=== PATIENT | female | born 1950 | race Caucasian/White ===

== ENCOUNTER → 2019-06-14 | Outpatient (CLI) | payer MEDICARE, BC, OTHER ==
[2019-06-14 14:22] LABS: INR 1.08; PROTHROMBIN TIME 13.7 SECONDS (11.8-14.0)
[2019-06-14 14:23] LABS: PARTIAL THROMBOPLASTIN TIME 35.6 SECONDS (25.0-38.4)
== END ==
LOC: M SMT 10:30
PROVIDERS: ATTEND Internal Medicine Pulmonary Disease
DX: R91.1 Solitary pulmonary nodule (principal)

== ENCOUNTER → 2019-09-05 | Outpatient (CLI) | payer MEDICARE, BC, OTHER ==
[~2019-09-05] MED LIST: ISOVUE-370 76% 100ML VIAL (Q9967) As Ordered ONE
--- NOTE | 2019-09-05 11:57 | REP ---
CT of the chest with IV contrast: Clinical history states solitary pulmonary nodule. There are no comparison studies available. Note the patient has additional history of lymphoma and emphysema. There is focal increased density in the extreme apex of the right lung measuring up to 3.3 cm in diameter. This is nonspecific in the absence of comparison studies and could represent chronic pleural parenchymal scarring or could represent neoplasm. There is a 2.5 cm nodule with poorly defined margins in the superior segment of the right lower lobe on image 45. There is a faintly visible ground-glass density anterolaterally in the right lung on image 46, nonspecific. There is atelectasis inferiorly in the right middle lobe. There is an 8 mm nodule like density at the inferior tip of the lingula on image 81. There are no pleural effusions. There is bilateral hilar adenopathy. There is mediastinal subcarinal adenopathy measuring up to 15 mm short axis. There is mediastinal paratracheal borderline adenopathy measuring up to 8 mm short axis. There are normal size anterior mediastinal nodes measuring up to 5 mm short axis. There is no axillary adenopathy. The thoracic aorta is unremarkable. The cardiac size is normal. There is no pericardial effusion. Upper abdomen: There are several hypodense lesions in the liver: in the dome measuring 11 mm, in the left hepatic lobe medial segment measuring 24 mm, anteriorly in the hepatic left lobe lateral segment measuring 9 mm and at the inferior tip of right lobe measuring 15 mm. Additionally, there are two enhancing lesions: one anteriorly in the right lobe measuring 17 mm and the other at the inferior tip of the right lobe posteriorly measuring 7 mm. There are surgical clips in the gallbladder fossa. The pancreas and spleen are unremarkable. The adrenals are unremarkable. The renal upper poles are unremarkable. The superior most portion of the abdominal aortic aneurysm minutes is visualized. Aneurysm is not completely included in the scan. Impression: Lung nodules as described. Atelectasis and ground-glass densities as described. Hilar and mediastinal adenopathy. Multiple hepatic hypodense and hepatic enhancing nodules as described. Abdominal aortic aneurysm incompletely occluded in the scan. Consider hepatic MRI for follow up evaluation of the hepatic nodules. Electronically Signed by Ajith Martinez MD 09/05/2019 11:49 A
== END ==
LOC: M RAD 10:34
PROVIDERS: ATTEND Internal Medicine Pulmonary Disease
DX: R91.1 Solitary pulmonary nodule (principal)
CPT/HCPCS: 71260; Q9967

== ENCOUNTER → 2019-10-12 | Outpatient (CLI) | payer MEDICARE, BC, OTHER ==
[~2019-10-12] MED LIST changes: +ATOR1TAB19 PO; +AZIT500T5 PO; +IBUP-1022 PO; -ISOVUE-370 76% 100ML VIAL (Q9967) As Ordered ONE; +LATA0.0015 OU; +OMEP-218 PO; +ONDA-83 PO; +PRED10TA2 PO; +PROAAER10 INH; +REST0.05 OU; +TREL1AER INH
--- NOTE | 2019-10-12 14:35 | REPPI ---
PA and lateral chest: Comparison is the chest CT dated 09/05/2019. The right costophrenic angle is effaced as an interval change suggestive of a new right pleural effusion. The patients known right lower lobe 2.5 cm lung nodule is faintly visible in the mid right lung. The left lung is clear. The cardiac size is normal. The deepak, mediastinum, skeletal structures are. Impression: New right pleural effusion. The known right lung nodule is faintly visible. Electronically Signed by Ajith Martinez MD 10/12/2019 02:26 P
== END ==
LOC: M PLAIMG 12:16
PROVIDERS: ATTEND Internal Medicine Pulmonary Disease
DX: J44.1 Chronic obstructive pulmonary disease with (acute) exacerbation (principal)

== ENCOUNTER 2019-10-13 17:21 | Inpatient (IN) | payer MEDICARE, BC, OTHER ==
[~2019-10-13] VITALS: Ht 154.9 cm; Wt 63.3 kg
[2019-10-13] MEDS ORDERED: ONDA-83 PO (19:02)
[2019-10-13] MEDS ORDERED: REST0.05 OU (19:02)
[2019-10-13] MEDS ORDERED: OMEP-218 PO (19:02)
[2019-10-13] MEDS ORDERED: LATA0.0015 OU (19:02)
[2019-10-13] MEDS ORDERED: IBUP-1022 PO (19:02)
[2019-10-13] MEDS ORDERED: ATOR1TAB19 PO (19:02)
[2019-10-13] MEDS ORDERED: ALBUTEROL SULFATE 2.5 MG/0.5 ML INH NEB SOLN NEB ONE (20:30)
[2019-10-13 20:49] LABS: BASO % 0.1 % (0.0-1.0); EOS % 0.1 % (0.0-3.0); HEMOGLOBIN 11.9 g/dl (12.0-15.5); LYMPH # 1.1 10^3/uL (1.5-5.0); LYMPH % 7.5 % (24.0-44.0); MEAN CORPUSCULAR HEMOGLOBIN 28.9 pg (27.0-33.0); MEAN CORPUSCULAR HGB CONC 32.2 g/dl (32.0-36.5); MEAN CORPUSCULAR VOLUME 89.8 fl (80.0-96.0); MONO # 0.8 10^3/uL (0.0-0.8); MONO % 5.8 % (0.0-5.0); NEUTROPHILS # 12.3 10^3/uL (1.5-8.5); NEUTROPHILS % 86.1 % (36.0-66.0); PLATELET COUNT, AUTOMATED 414 10^3/uL (150-450); RED BLOOD COUNT 4.12 10^6/uL (4.00-5.40); WHITE BLOOD COUNT 14.3 10^3/uL (4.0-10.0)
--- NOTE | 2019-10-13 20:55 | REPVR ---
PROCEDURE INFORMATION: Exam: CT Chest Without Contrast Exam date and time: 10/13/2019 8:07 PM Age: 69 years old Clinical indication: Abnormal findings; Abnormal radiologic exam of lung or chest; Additional info: Right sided pleaural effusion on xray TECHNIQUE: Imaging protocol: Computed tomography of the chest without contrast. 3D rendering: MIP and/or 3D reconstructed images were created by the technologist. Radiation optimization: All CT scans at this facility use at least one of these dose optimization techniques: automated exposure control; mA and/or kV adjustment per patient size (includes targeted exams where dose is matched to clinical indication); or iterative reconstruction. COMPARISON: CT Chest with contrast 09/05/2019 11:08 AM FINDINGS: Lungs: Spiculated 3.2 cm mass in the right lower lobe has increased in size. Worsening interstitial changes with peribronchial thickening and fibrosis in the left upper lobe. New small areas of airspace consolidation in the right middle and lower lobes. Worsening interstitial thickening in the right lower lobe. No new masses are seen. Right lung is clear. Mild emphysematous changes. Pleural space: Small right pleural effusion. No pneumothorax. Heart: Coronary artery disease is noted. Normal heart size. Mediastinum: New soft tissue thickening in the right hilum around the hilar bronchi. Aorta: Unremarkable. No aortic aneurysm. Lymph nodes: Scattered mediastinal and hilar lymph nodes are not significantly changed. Liver: Low-density masses in the liver are unchanged. Bones/joints: Unremarkable. No acute fracture. Soft tissues: Unremarkable. IMPRESSION: 1. Interval increase in size of right lower lobe mass. 2. New area of airspace consolidation in the right lower lobe suggesting developing pneumonia. 3. Interstitial thickening and peribronchial soft tissue thickening in the right lung may be due to interstitial edema or lymphangitic tumor spread. 4. Small right pleural effusion. Electronically signed by: Juanjo Perez On 10/13/2019 20:54:33 PM
[2019-10-13 21:21] LABS: ALBUMIN 3.1 GM/DL (3.2-5.2); ALT/SGPT 25 U/L (12-78); BILIRUBIN,DIRECT < 0.1 MG/DL (0.0-0.2); BILIRUBIN,TOTAL 0.5 MG/DL (0.2-1.0); BLOOD UREA NITROGEN 17 MG/DL (7-18); CALCIUM LEVEL 9.2 MG/DL (8.8-10.2); CARBON DIOXIDE LEVEL 30 MEQ/L (21-32); CHLORIDE LEVEL 105 MEQ/L (98-107); CREATININE FOR GFR 0.57 MG/DL (0.55-1.30); GLOMERULAR FILTRATION RATE > 60.0 (>45); GLUCOSE, FASTING 100 MG/DL (70-100); NT-PRO BNP 1547 PG/ML (<125); POTASSIUM SERUM 3.6 MEQ/L (3.5-5.1); SODIUM LEVEL 143 MEQ/L (136-145); THYROXINE (T4) 11.1 UG/DL (4.5-12.0); TOTAL PROTEIN 6.8 GM/DL (6.4-8.2)
[2019-10-13] MEDS ORDERED: cefTRIAXone SOD 1 GM in D5W MINI-BAG PLUS 50 ML IV ONE (21:30)
[2019-10-13] MEDS ORDERED: AZIT500T5 PO (21:55)
[2019-10-13] MEDS ORDERED: PROAAER10 INH (21:55)
[2019-10-13] MEDS ORDERED: PRED10TA2 PO (21:55)
[2019-10-13] MEDS ORDERED: TREL1AER INH (21:56)
[2019-10-13] MEDS ORDERED: methylPREDNISolone INJ 125 MG/2 ML VIAL (J2930) IV STA (22:43)
[2019-10-13] MEDS ORDERED: ALBUTEROL SULFATE 2.5 MG/0.5 ML INH NEB SOLN NEB PRN (22:45)
--- NOTE | 2019-10-13 22:50 | HPEPDOC ---
[facility] Medical History & Physical Date of Admission Oct 13, 2019 Date of Service: Oct 13, 2019 Primary Care Physician: Carlin Hager Attending Physician: JUANI GONSALVES MD History and Physical TIME OF SERVICE: 9:50 PM CHIEF COMPLAINT: Sent by Dr. Mejia's office HISTORY OF PRESENT ILLNESS: This is a 64-year-old female who was sent from Dr. Mejia's office for evaluation of dyspnea and to rule out cardiac causes. The patient reports feeling short of breath since September; the rest of breath is worse when she walks. She also has a cough that is usually productive of clear sputum in the morning and becomes dry later on in the day. She denies having lower extremity edema or chest pain and feels like she has gained weight. Yesterday she saw Dr. Mejia was started on supplemental O2, prednisone, Trilogy, and a Z-Ashutosh. She had chest x-ray which showed a right pleural effusion, therefore, Dr. Mejia's office called her and her to come in for evaluation. She has a history of lymphoma affecting the neck; according her , the most recent PET scan done at [facility] "did not light up." REVIEW OF SYSTEMS: 12 point review of systems negative except as listed in HPI PAST MEDICAL/ SURGICAL HISTORY: Lymphoma of the neck Right lung nodule cause to be determined COPD Chronic oxygen-dependent respiratory failure ( 2 L) AAA Dyslipidemia. Hysterectomy Tubal ligation SOCIAL HISTORY: She is a former smoker with a 50 pack years history. She quit in April ALLERGIES: Please see below. HOME MEDICATIONS: Please see below. Vital Signs Date Time Temp Pulse Resp B/P (MAP) Pulse Ox O2 Delivery O2 Flow Rate FiO2 10/13/19 17:22 98.6 98 18 145/95 (112) 96 Room Air PHYSICAL EXAMINATION: GEN: well nourished / well developed/ NAD INTEGUMENT: She doesn't have facial plethora HEENT:NCAT / lips are not cyanotic / he doesn't have pursed lip breathing / NC in place / mucus membranes moist and pink CVS: RRR/ radial pulses intact LUNGS: She is using accessory muscles and is having difficulties speaking a full sentence without stopping to take a breath / coughing /breath sounds are diminished bilaterally ABDOMEN: soft & not tender with palpation NEURO: CN 2-12 are grossly intact / speech is not dysarthric PSYCH: alert and oriented to person place and time/ able to understand and follow all commands LABORATORY DATA: Immature Granulocyte % (Auto) 0.4, Neutrophils (%) (Auto) 86.1H, Lymphocytes (%) (Auto) 7.5L, Monocytes (%) (Auto) 5.8H, Eosinophils (%) (Auto) 0.1, Basophils (%) (Auto) 0.1, Neutrophils # (Auto) 12.3H, Lymphocytes # (Auto) 1.1L, Monocytes # (Auto) 0.8, Eosinophils # (Auto) 0.0, Basophils # (Auto) 0.0, Nucleated Red Blood Cells % (auto) 0.0, Anion Gap 8, Glomerular Filtration Rate > 60.0, Calcium Level 9.2, Total Bilirubin 0.5, Direct Bilirubin < 0.1, Aspartate Amino Transf (AST/SGOT) 24, Alanine Aminotransferase (ALT/SGPT) 25, Alkaline Phosphatase 82, YO-Ssq-D-Type Natriuretic Peptide 1547H, Total Protein 6.8, Albumin 3.1L, Albumin/Globulin Ratio 0.84L, Thyroid Stimulating Hormone (TSH) 1.370, Thyroxine (T4) 11.1 IMAGING: CT chest " IMPRESSION: 1. Interval increase in size of right lower lobe mass. 2. New area of airspace consolidation in the right lower lobe suggesting developing pneumonia. 3. Interstitial thickening and peribronchial soft tissue thickening in the right lung may be due to interstitial edema or lymphangitic tumor spread. 4. Small right pleural effusion" MICROBIOLOGY: 10/13/19 Blood Culture, Received Pending 10/13/19 Blood Culture, Received Pending ASSESSMENT: Ms. Mari is a 69-year-old with a past medical history of lymphoma affecting the neck, new right lung nodule of unclear cause, COPD, oxygen-dependent respiratory failure, AAA, and dyslipidemia who is admitted for evaluation of dyspnea. PLAN: 1. Multifactorial Dyspnea Possibly due to postobstructive pneumonia and/or progression of possible lung cancer. She also appears to be having a COPD exacerbation. EKG shows sinus rhythm with a heart rate of 85, & no acute ST elevation. Plan: admit to PCU / supplemental O2 / continuous pulse oximetry / aspiration precautions / COPD diet / since her BNP is elevated we will follow up in Echo to assess for pulmonary hypertension, and trend troponins / f/u VBG / Solu-Medrol now / Dunebs Q6H, Albuterol Q1HP, Prednisone + PPI / ceftriaxone, doxycycline pending sputum culture, strep pneumo, MRSA, and legionella/ Tessalon Pearls / Acetaminophen PRN for fever / refer to [facility] for repeat PFTs and Pulmonary Rehab when ready for d/c 2. Right lung nodule with pleural effusion. The patient reports that she doesn't want IR guided biopsy. - will ask the daytime team to make a call to Dr. Mejia to determine if the plan is for pleural effusion or bronchoscopy and if the procedure should be done this admission / will request PET report from [facility] 3. Dyslipidemia - atorvastatin DVT PROPHYLAXIS: Lovenox DISPOSITION: Home. after more than 2 midnight's stay Home Medications Scheduled Atorvastatin Calcium (Atorvastatin Calcium) 10 Mg Tablet, 10 MG PO QHS Azithromycin (Azithromycin) 500 Mg Tablet, 500 MG PO DAILY Cyclosporine (Restasis) 0.05% Droperette, 1 DROP OU BID Fluticasone/Umeclidin/Vilanter (Trelegy Ellipta 100-62.5-25) 1 Each Blst.w.dev, 1 PUFF INH DAILY Latanoprost/Pf (Latanoprost 0.005% Eye Drop) 7.5 Ml Drops, 1 DROP OU QHS Omeprazole (Omeprazole) 20 Mg Capsule.dr, 20 MG PO DAILY Prednisone (Prednisone) 10 Mg Tablet, 40 MG PO DAILY 40MG x 3 DAYS, 30MG x 3 DAYS, 20MG x 3DAYS, 10MG x 3 DAYS. Scheduled PRN Albuterol Sulfate (Proair Hfa) 8.5 Gm Hfa.aer.ad, 2 PUFF INH Q4H PRN for SOB/WHEEZING Ibuprofen (Ibuprofen) 600 Mg Tablet, 600 MG PO TID PRN for PAIN with food Ondansetron HCl (Ondansetron HCl) 4 Mg Tablet, 4 MG PO Q8H PRN for NAUSEA OR VOMITING Allergies Coded Allergies: No Known Allergies (Unverified , 10/13/19) A-FIB/CHADSVASC A-FIB History Current/History of A-Fib/PAF?: No Current PO Anticoag Therapy: No JUANI GONSALVES MD Oct 13, 2019 22:50
[2019-10-13 23:21] LABS: CK-MB VALUE MASS 6.8 NG/ML (<3.6); CPK CREATINE PHOSPHOKINASE 280 U/L (26-192); MAGNESIUM LEVEL 1.9 MG/DL (1.8-2.4); MB/CK RELATIVE INDEX 2.43 (< OR =4); TROPONIN I < 0.02 NG/ML (< 0.10)
[2019-10-14] VITALS (8 sets, daily range): BP systolic 142–150; BP diastolic 89–99; O2SAT 97–99
[2019-10-14] MEDS ORDERED: LevoFLOXacin IV 750 MG in IV 1 EA IV SCH ×2
--- NOTE | 2019-10-14 00:21 | ECGEPIP ---
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
[2019-10-14] MEDS ORDERED: BENZONATATE 100 MG CAP PO PRN (00:45)
[2019-10-14 00:49] LABS: VENOUS BASE EXCESS -1.2 (-2.0-2.0); VENOUS HCO3 23.4 MEQ/L (23.0-27.0); VENOUS O2 SATURATION 96.4 % (60.0-80.0); VENOUS PARTIAL PRESSURE CO2 38.6 mmHg (38.0-50.0); VENOUS PARTIAL PRESSURE O2 86.2 mmHg (30.0-50.0); VENOUS STANDARD HCO3 23.5 MEQ/L; VENOUS TOTAL CO2 24.6 MEQ/L (24.0-28.0)
[2019-10-14] MEDS: IPRATROPIUM 0.5MG/ALBUTEROL 2.5MG INH SOL UD 3ML (DUONEB)(J7620) NEB SCH ×6 (02:00→23:51)
[2019-10-14] MEDS: LATANOPROST 0.005% OPHTH SOLN 2.5 ML OU SCH ×2 (02:32→20:33)
[2019-10-14] MEDS: DOXYCYCLINE HYCLATE 100 MG in D5W MINI-BAG PLUS 100 ML IV SCH ×3 (02:32→23:34)
[2019-10-14] MEDS: ATORVASTATIN 10 MG TAB PO SCH ×2 (02:32→20:33)
[2019-10-14 05:38] LABS: HEMATOCRIT 37.9 % (36.0-47.0); HEMOGLOBIN 12.2 g/dl (12.0-15.5); MEAN CORPUSCULAR HEMOGLOBIN 29.1 pg (27.0-33.0); MEAN CORPUSCULAR HGB CONC 32.2 g/dl (32.0-36.5); MEAN CORPUSCULAR VOLUME 90.5 fl (80.0-96.0); PLATELET COUNT, AUTOMATED 404 10^3/uL (150-450); RED BLOOD COUNT 4.19 10^6/uL (4.00-5.40); WHITE BLOOD COUNT 11.5 10^3/uL (4.0-10.0)
[2019-10-14 05:56] LABS: BLOOD UREA NITROGEN 16 MG/DL (7-18); CALCIUM LEVEL 8.5 MG/DL (8.8-10.2); CARBON DIOXIDE LEVEL 30 MEQ/L (21-32); CHLORIDE LEVEL 108 MEQ/L (98-107); CREATININE FOR GFR 0.59 MG/DL (0.55-1.30); GLOMERULAR FILTRATION RATE > 60.0 (>45); GLUCOSE, FASTING 139 MG/DL (70-100); MAGNESIUM LEVEL 2.1 MG/DL (1.8-2.4); SODIUM LEVEL 142 MEQ/L (136-145)
[2019-10-14 06:00] LABS: CK-MB VALUE MASS 6.7 NG/ML (<3.6); MB/CK RELATIVE INDEX 2.61 (< OR =4); TROPONIN I 0.02 NG/ML (< 0.10)
[2019-10-14] MEDS: cefTRIAXone SOD 2 GM in D5W MINI-BAG PLUS 50 ML IV SCH (08:59)
[2019-10-14] MEDS ORDERED: cefTRIAXone SOD 1 GM in D5W MINI-BAG PLUS 50 ML IV SCH (09:00)
[2019-10-14] MEDS ORDERED: ENOXAPARIN 40 MG/0.4 ML SYRINGE (J1650) SC SCH (09:00)
[2019-10-14] MEDS: PANTOPRAZOLE 40MG TAB (PROTONIX) PO SCH (09:00)
[2019-10-14] MEDS ORDERED: cefTRIAXone SOD 2 GM VIAL (J0696 PER 250MG) IM SCH (09:00)
[2019-10-14] MEDS ORDERED: cefTRIAXone SOD 1 GM in D5W MINI-BAG PLUS 50 ML IV ONE (09:00)
[2019-10-14] MEDS: predniSONE 20 MG TAB PO SCH (09:00)
[2019-10-14 11:21] LABS: CK-MB VALUE MASS 6.3 NG/ML (<3.6); CPK CREATINE PHOSPHOKINASE 246 U/L (26-192); MB/CK RELATIVE INDEX 2.56 (< OR =4); TROPONIN I < 0.02 NG/ML (< 0.10)
--- NOTE | 2019-10-14 12:16 | IPNPDOC ---
Subjective Date Seen The patient was seen on 10/14/19. Subjective Chief Complaint/HPI Kelsey is feeling better with therapy. She's not wheezing this morning, and has been up to the bathroom with oxygen. Objective Physical Examination General Exam: Positive: Alert Eye Exam: Negative: PERRLA, Sclera icteric ENT Exam: Positive: Mucous membr. moist/pink Neck Exam: Positive: Supple Chest Exam: Positive: Diminished (on RLL) Abdomen Exam: Positive: Normal bowel sounds Female Exam: Positive: Nl Ext Genitalia Extremity Exam: Positive: Edema (trace pitting) Skin Exam: Negative: Rash Neuro Exam: Positive: Normal Gait Psych Exam: Positive: Mental status NL Assessment /Plan Assessment # COPD exacerbation # Post-obstructive community acquired pneumonia # Acute hypoxic respiratory failure - continue pred/doxy/ceftriaxone - oxygen at discharge # Right lung nodule with pleural effusion - d/w Dr. Mejia will try for diagnostic tap of right pleural effusion Plan/VTE VTE Prophylaxis Ordered?: No (procedure) VTE Exclusion Mechanical Proph: N/A:VTE Prophy Ordered VTE Exclusion Pharmacological: Other VS, I&O, 24H, Fishbone Vital Signs/I&O Vital Signs Date Time Temp Pulse Resp B/P (MAP) Pulse Ox O2 Delivery O2 Flow Rate FiO2 10/14/19 10:00 98.5 87 16 143/89 (107) 97 Nasal Cannula 2.0 I&O- Last 24 Hours up to 6 AM 10/14/19 06:00 Intake Total 290 ml Output Total 250 ml Balance 40 ml Laboratory Data 24H LABS Laboratory Tests 2 10/13/19 20:29: Immature Granulocyte % (Auto) 0.4, Neutrophils (%) (Auto) 86.1H, Lymphocytes (%) (Auto) 7.5L, Monocytes (%) (Auto) 5.8H, Eosinophils (%) (Auto) 0.1, Basophils (%) (Auto) 0.1, Neutrophils # (Auto) 12.3H, Lymphocytes # (Auto) 1.1L, Monocytes # (Auto) 0.8, Eosinophils # (Auto) 0.0, Basophils # (Auto) 0.0, Nucleated Red Blood Cells % (auto) 0.0, Anion Gap 8, Glomerular Filtration Rate > 60.0, Calcium Level 9.2, Magnesium Level 1.9, Total Bilirubin 0.5, Direct Bilirubin < 0.1, Aspartate Amino Transf (AST/SGOT) 24, Alanine Aminotransferase (ALT/SGPT) 25, Alkaline Phosphatase 82, Total Creatine Kinase 280H, Creatine Kinase MB 6.8H, Creatine Kinase MB Relative Index 2.43, Troponin I < 0.02, RG-Fmu-D-Type Natriuretic Peptide 1547H, Total Protein 6.8, Albumin 3.1L, Albumin/Globulin Ratio 0.84L, Thyroid Stimulating Hormone (TSH) 1.370, Thyroxine (T4) 11.1 10/14/19 00:39: Blood Gas Puncture Site UNKNOWN, Blood Gas Bicarbonate Standard 23.5, Venous Blood pH 7.400, Venous Blood Partial Pressure CO2 38.6, Venous Blood Partial Pressure O2 86.2H, Venous Blood Total Carbon Dioxide 24.6, Venous Blood HCO3 23.4, Venous Blood Oxygen Saturation 96.4H, Venous Blood Base Excess -1.2 10/14/19 03:00: 10/14/19 05:15: Nucleated Red Blood Cells % (auto) 0.0, Anion Gap 4L, Glomerular Filtration Rate > 60.0, Calcium Level 8.5L, Magnesium Level 2.1, Total Creatine Kinase 257H, Creatine Kinase MB 6.7H, Creatine Kinase MB Relative Index 2.61, Troponin I 0.02 10/14/19 10:49: Total Creatine Kinase 246H, Creatine Kinase MB 6.3H, Creatine Kinase MB Relative Index 2.56, Troponin I < 0.02 CBC/BMP Laboratory Tests 10/13/19 20:29 10/14/19 05:15 Microbiology Microbiology 10/13/19 Blood Culture, Received Pending 10/13/19 Blood Culture, Received Pending NAVDEEP RICHEY MD Oct 14, 2019 12:16
--- NOTE | 2019-10-14 20:18 | ECHO ---
DATE OF PROCEDURE: 10/14/2019 AGE: 69 GENDER: Female HEIGHT: 61 inches WEIGHT: 143 pounds BODY SURFACE AREA: 1.64 m2 PATIENT LOCATION: Inpatient, [address] [place] [address], room 4210 REFERRING PHYSICIAN: Dr. Neelam Quiroga INDICATION: Dyspnea. 2-D MEASUREMENTS: RV: 3.8 cm LV: 4.6 cm Septum: 1.0 cm Posterior wall: 1.0 cm Aortic root: 3.0 cm LA: 3.7 cm LVEF: 75% DOPPLER MEASUREMENTS: AV: 1.6 cm LVOT: 1.0 cm LVOT diameter: 1.8 cm MV-E: 65, A: 97, EA ratio: 0.7 Early mitral deceleration time: 239 ms E prime medial: 5.4 A prime medial: 10 E prime lateral: 7.9 Average E/E prime ratio: 9.8 / PCWP: 14 mmHg PV: 0.7 m/s Pulmonary artery acceleration time: 100 ms RVSP: 37 - 42 mmHg IVC: 2.2 cm COMMENTS Normal sinus rhythm without intraventricular conduction disturbance. M-mode and two-dimensional echocardiography was performed with pulsed, continuous wave, color flow and tissue Doppler studies. Normal left ventricular size, wall thickness and hyperkinetic wall motion. Left atrial size upper limits of normal to slightly dilated with grade 1 LV diastolic dysfunction and current estimated mean left atrial pressure upper limits of normal. Right heart chamber sizes were upper limits of normal with normal wall motion and Doppler evidence of mild - moderate pulmonary hypertension. Mildly dilated inferior vena cava with slightly reduced respiratory collapse in keeping with central venous pressure upper limits of normal to slightly increased. Normal appearing and functioning aortic valve. Normal aortic dimensions. Slightly thickened mitral valvular apparatus with normal leaflet excursion and no evidence of prolapse, yet moderate insufficiency. Normal tricuspid valve with very mild tricuspid insufficiency. No apparent intracardiac mass or pericardial effusion.
[2019-10-15] VITALS (7 sets, daily range): BP systolic 134–150; BP diastolic 88–91; O2SAT 92–95
[2019-10-15] MEDS: IPRATROPIUM 0.5MG/ALBUTEROL 2.5MG INH SOL UD 3ML (DUONEB)(J7620) NEB SCH ×3 (07:44→18:46)
[2019-10-15] MEDS: predniSONE 20 MG TAB PO SCH (08:40)
[2019-10-15] MEDS: PANTOPRAZOLE 40MG TAB (PROTONIX) PO SCH (08:40)
[2019-10-15] MEDS: cefTRIAXone SOD 2 GM in D5W MINI-BAG PLUS 50 ML IV SCH (08:40)
[2019-10-15] MEDS ORDERED: FUROSEMIDE 20 MG TAB PO SCH (09:00)
--- NOTE | 2019-10-15 09:58 | IPNPDOC ---
Subjective Date Seen The patient was seen on 10/15/19. Subjective Chief Complaint/HPI Kelsey could not have her thoracentesis done yesterday, her breathing is better but still feels sob Objective Physical Examination General Exam: Positive: Alert, No Acute Distress Eye Exam: Positive: PERRLA, Conjunctiva & lids normal, EOMI; Negative: Sclera icteric ENT Exam: Positive: Mucous membr. moist/pink Neck Exam: Positive: Supple Chest Exam: Positive: Diminished (on RLL) Heart Exam: Positive: Rate Normal Abdomen Exam: Positive: Normal bowel sounds Female Exam: Positive: Nl Ext Genitalia Extremity Exam: Negative: Edema Skin Exam: Negative: Rash Neuro Exam: Positive: Normal Gait Psych Exam: Positive: Mental status NL Assessment /Plan Assessment # COPD exacerbation # Post-obstructive community acquired pneumonia # Acute hypoxic respiratory failure - continue pred/doxy/ceftriaxone - has home oxygen at discharge # Right lung nodule with pleural effusion - diagnostic tap of right pleural effusion - plan for thursday - hold anticoagulant # Acute diastolic CHF - Echo reviewed - lasix 20 mg daily Plan/VTE VTE Prophylaxis Ordered?: No (procedure) VTE Exclusion Mechanical Proph: N/A:VTE Prophy Ordered VTE Exclusion Pharmacological: Other VS, I&O, 24H, Fishbone Vital Signs/I&O Vital Signs Date Time Temp Pulse Resp B/P (MAP) Pulse Ox O2 Delivery O2 Flow Rate FiO2 10/15/19 06:00 98.0 83 18 140/89 (106) 96 10/15/19 02:00 Nasal Cannula 2.0 I&O- Last 24 Hours up to 6 AM 10/15/19 06:00 Intake Total 1320 ml Output Total 1250 ml Balance 70 ml Laboratory Data 24H LABS Laboratory Tests 2 10/14/19 10:49: Total Creatine Kinase 246H, Creatine Kinase MB 6.3H, Creatine Kinase MB Relative Index 2.56, Troponin I < 0.02 Microbiology Microbiology 10/13/19 Blood Culture - Preliminary, Resulted No growth after 24 hours . All specim... 10/13/19 Blood Culture - Preliminary, Resulted No growth after 24 hours . All specim... NAVDEEP RICHEY MD Oct 15, 2019 09:58
[2019-10-15] MEDS: DOXYCYCLINE HYCLATE 100 MG in D5W MINI-BAG PLUS 100 ML IV SCH ×2 (12:44→23:53)
[2019-10-15] MEDS: LATANOPROST 0.005% OPHTH SOLN 2.5 ML OU SCH (20:05)
[2019-10-15] MEDS: ATORVASTATIN 10 MG TAB PO SCH (20:05)
[2019-10-16] VITALS (9 sets, daily range): BP systolic 130–153; BP diastolic 88–93; O2SAT 91–96
[2019-10-16] MEDS: IPRATROPIUM 0.5MG/ALBUTEROL 2.5MG INH SOL UD 3ML (DUONEB)(J7620) NEB SCH ×4 (02:12→20:02)
[2019-10-16 05:56] LABS: HEMATOCRIT 37.9 % (36.0-47.0); HEMOGLOBIN 12.1 g/dl (12.0-15.5); MEAN CORPUSCULAR HEMOGLOBIN 28.7 pg (27.0-33.0); MEAN CORPUSCULAR HGB CONC 31.9 g/dl (32.0-36.5); MEAN CORPUSCULAR VOLUME 89.8 fl (80.0-96.0); PLATELET COUNT, AUTOMATED 344 10^3/uL (150-450); RED BLOOD COUNT 4.22 10^6/uL (4.00-5.40); WHITE BLOOD COUNT 10.6 10^3/uL (4.0-10.0)
[2019-10-16 06:26] LABS: BLOOD UREA NITROGEN 21 MG/DL (7-18); CALCIUM LEVEL 8.3 MG/DL (8.8-10.2); CARBON DIOXIDE LEVEL 32 MEQ/L (21-32); CHLORIDE LEVEL 105 MEQ/L (98-107); CREATININE FOR GFR 0.56 MG/DL (0.55-1.30); GLOMERULAR FILTRATION RATE > 60.0 (>45); GLUCOSE, FASTING 92 MG/DL (70-100); MAGNESIUM LEVEL 1.8 MG/DL (1.8-2.4); POTASSIUM SERUM 3.3 MEQ/L (3.5-5.1); SODIUM LEVEL 141 MEQ/L (136-145)
[2019-10-16] MEDS: POTASSIUM CHLORIDE 10 MEQ SR TABLET PO SCH (08:28)
[2019-10-16] MEDS: predniSONE 20 MG TAB PO SCH (08:28)
[2019-10-16] MEDS: PANTOPRAZOLE 40MG TAB (PROTONIX) PO SCH (08:28)
[2019-10-16] MEDS: cefTRIAXone SOD 2 GM in D5W MINI-BAG PLUS 50 ML IV SCH (08:29)
[2019-10-16] MEDS: FUROSEMIDE 10MG PER 1/2 TABLET PO SCH (09:01)
--- NOTE | 2019-10-16 10:43 | IPNPDOC ---
Subjective Date Seen The patient was seen on 10/16/19. Subjective Chief Complaint/HPI Oxygen requirements down this morning to 1 liter at rest, needs alittle more with activity Objective Physical Examination General Exam: Positive: Alert, No Acute Distress Eye Exam: Positive: PERRLA, Conjunctiva & lids normal, EOMI; Negative: Sclera icteric ENT Exam: Positive: Mucous membr. moist/pink Neck Exam: Positive: Supple Chest Exam: Positive: Diminished (on RLL); Negative: Rales, Rhonchi, Wheezing Heart Exam: Positive: Rate Normal, Normal S1, Normal S2; Negative: Murmurs Abdomen Exam: Positive: Normal bowel sounds Female Exam: Positive: Nl Ext Genitalia Extremity Exam: Negative: Edema Skin Exam: Negative: Rash Neuro Exam: Positive: Normal Gait Psych Exam: Positive: Mental status NL Assessment /Plan Assessment # COPD exacerbation # Post-obstructive community acquired pneumonia # Acute hypoxic respiratory failure - continue pred/doxy/ceftriaxone - has home oxygen at discharge - improved # Right lung nodule with pleural effusion - diagnostic tap of right pleural effusion, hopefully there will be enough following diuretic therapy - plan for thursday - hold anticoagulant # Acute diastolic CHF # Hypokalemia - Echo reviewed - reduce lasix 10 mg daily may need every other day or -- dosing - replace K Dispo: Home tomorrow Plan/VTE VTE Prophylaxis Ordered?: No (procedure) VTE Exclusion Mechanical Proph: N/A:VTE Prophy Ordered VTE Exclusion Pharmacological: Other VS, I&O, 24H, Fishbone Vital Signs/I&O Vital Signs Date Time Temp Pulse Resp B/P (MAP) Pulse Ox O2 Delivery O2 Flow Rate FiO2 10/16/19 10:00 98.7 84 18 149/91 (110) 95 Room Air 10/16/19 07:31 1.0 I&O- Last 24 Hours up to 6 AM 10/16/19 05:59 Intake Total 1240 ml Output Total 1600 ml Balance -360 ml Laboratory Data 24H LABS Laboratory Tests 2 10/16/19 05:46: Nucleated Red Blood Cells % (auto) 0.0, Anion Gap 4L, Glomerular Filtration Rate > 60.0, Calcium Level 8.3L, Magnesium Level 1.8 CBC/BMP Laboratory Tests 10/16/19 05:46 Microbiology Microbiology 10/13/19 Blood Culture - Preliminary, Resulted No Growth after 48 hours. All Specime... 10/13/19 Blood Culture - Preliminary, Resulted No Growth after 48 hours. All Specime... NAVDEEP RICHEY MD Oct 16, 2019 10:43
[2019-10-16] MEDS: DOXYCYCLINE HYCLATE 100 MG in D5W MINI-BAG PLUS 100 ML IV SCH (12:53)
[2019-10-16] MEDS: LATANOPROST 0.005% OPHTH SOLN 2.5 ML OU SCH (20:03)
[2019-10-16] MEDS: ATORVASTATIN 10 MG TAB PO SCH (20:03)
[2019-10-17] MEDS: DOXYCYCLINE HYCLATE 100 MG in D5W MINI-BAG PLUS 100 ML IV SCH ×2 (00:47→12:17)
[2019-10-17 02:00] VITALS: BP 151/95
[2019-10-17] MEDS: ONDANSETRON 4 MG TAB (S0181) PO PRN ×2 (02:08→18:25)
[2019-10-17] MEDS: IPRATROPIUM 0.5MG/ALBUTEROL 2.5MG INH SOL UD 3ML (DUONEB)(J7620) NEB SCH ×4 (02:33→20:00)
[2019-10-17 06:00] VITALS: BP 149/94
[2019-10-17 07:32] LABS: BLOOD UREA NITROGEN 19 MG/DL (7-18); CALCIUM LEVEL 8.9 MG/DL (8.8-10.2); CARBON DIOXIDE LEVEL 31 MEQ/L (21-32); CHLORIDE LEVEL 103 MEQ/L (98-107); GLOMERULAR FILTRATION RATE > 60.0 (>45); GLUCOSE, FASTING 83 MG/DL (70-100); MAGNESIUM LEVEL 1.9 MG/DL (1.8-2.4); POTASSIUM SERUM 4.1 MEQ/L (3.5-5.1); SODIUM LEVEL 140 MEQ/L (136-145)
[2019-10-17] MEDS: predniSONE 20 MG TAB PO SCH (08:50)
[2019-10-17] MEDS: PANTOPRAZOLE 40MG TAB (PROTONIX) PO SCH (08:51)
[2019-10-17] MEDS: POTASSIUM CHLORIDE 10 MEQ SR TABLET PO SCH (08:51)
[2019-10-17] MEDS: cefTRIAXone SOD 2 GM in D5W MINI-BAG PLUS 50 ML IV SCH (08:51)
[2019-10-17] MEDS: FUROSEMIDE 10MG PER 1/2 TABLET PO SCH (08:51)
[2019-10-17 10:00] VITALS: BP 148/98
[2019-10-17 10:32] VITALS: O2SAT 94
[2019-10-17 14:00] VITALS: BP 140/88
[2019-10-17] MEDS ORDERED: KLOR10TA76 PO (14:04)
[2019-10-17] MEDS ORDERED: FURO20TA2 PO (14:04)
[2019-10-17] MEDS ORDERED: CEFU50TA PO (14:04)
--- NOTE | 2019-10-17 14:13 | IPNPDOC ---
Subjective Date Seen The patient was seen on 10/17/19. Subjective Chief Complaint/HPI Kelsey is resting in chair eating breakfast, she's off oxygen and not experiencing any labored breathing Objective Physical Examination General Exam: Positive: Cooperative, No Acute Distress Eye Exam: Positive: EOMI; Negative: Sclera icteric ENT Exam: Positive: Mucous membr. moist/pink (no thrush) Neck Exam: Positive: Supple Chest Exam: Positive: Diminished (on RLL); Negative: Rales, Rhonchi, Wheezing Heart Exam: Positive: Rate Normal, Normal S1, Normal S2; Negative: Murmurs Abdomen Exam: Positive: Normal bowel sounds Female Exam: Positive: Nl Ext Genitalia Extremity Exam: Negative: Edema Skin Exam: Negative: Rash Neuro Exam: Positive: Normal Gait Psych Exam: Positive: Mental status NL Assessment /Plan Assessment # COPD exacerbation # Post-obstructive community acquired pneumonia # Acute hypoxic respiratory failure - discontinue pred, and continue cefuroxime 500 mg bid x 3 more days - has home oxygen at discharge - clinically improved # Right lung nodule with pleural effusion - diagnostic tap of right pleural effusion today, hopefully there will be enough following diuretic therapy - hold anticoagulant # Acute diastolic CHF # Hypokalemia - Echo reviewed - conitne lasix 10 mg daily - Potassium 10 mEq daily # Transient HTN likely due to prednisone + anxiety - advised to f/u with PCP in 1 week - instructed to keep BP log at home Dispo: Home today Plan/VTE VTE Prophylaxis Ordered?: No (procedure) VTE Exclusion Mechanical Proph: N/A:VTE Prophy Ordered VTE Exclusion Pharmacological: Other VS, I&O, 24H, Fishbone Vital Signs/I&O Vital Signs Date Time Temp Pulse Resp B/P (MAP) Pulse Ox O2 Delivery O2 Flow Rate FiO2 10/17/19 10:32 94 Room Air 10/17/19 10:00 98.1 87 19 148/98 (115) 10/16/19 07:31 1.0 I&O- Last 24 Hours up to 6 AM 10/17/19 06:00 Intake Total 1380 ml Output Total 1650 ml Balance -270 ml Laboratory Data 24H LABS Laboratory Tests 2 10/17/19 05:59: Anion Gap 6L, Glomerular Filtration Rate > 60.0, Calcium Level 8.9, Magnesium Level 1.9 CBC/BMP Laboratory Tests 10/17/19 05:59 Microbiology Microbiology 10/13/19 Blood Culture - Preliminary, Resulted No Growth after 72 hours. All specime... 10/13/19 Blood Culture - Preliminary, Resulted No Growth after 72 hours. All specime... NAVDEEP RICHEY MD Oct 17, 2019 14:13
--- NOTE | 2019-10-17 17:24 | REP ---
CHEST, TWO VIEWS: Two views of the chest are performed status post right thoracentesis. Right pleural effusion has diminished. There is no pneumothorax. Mass density at the level of the right hilum is unchanged. Ill-defined infiltrate/atelectasis in the right lung base has improved. Left lung is unchanged. Heart is not enlarged. Mediastinal silhouette is unchanged. Electronically Signed by Ajith Palomino MD 10/17/2019 06:27 P
[2019-10-17 17:38] LABS: PH BODY FLUID 7.609 UNITS (NOT ESTABLISHED); SOURCE, BODY FLUID pH PLEURAL
[2019-10-17 17:49] LABS: APPEARANCE, BODY FLUID HAZY (CLEAR); PLEURAL FL COLOR YELLOW (COLORLESS); SOURCE, BODY FLUID PLEURAL
[2019-10-17 18:09] LABS: AMYLASE, BODY FLUID 22 U/L (NOT ESTABLISHED); LDH, BODY FLUID 170 U/L (NOT ESTABLISHED); SOURCE, BODY FLUID AMYLASE PLEURAL; SOURCE, BODY FLUID GLUCOSE PLEURAL; SOURCE, BODY FLUID LDH PLEURAL; SOURCE, BODY FLUID TOT PROTEIN PLEURAL; TOTAL PROTEIN, BODY FLUID 3.2 G/DL (NOT ESTABLISHED)
--- NOTE | 2019-10-17 18:15 | REP ---
ULTRASOUND-GUIDED RIGHT THORACENTESIS The procedure was performed under the direct supervision of Dr. Palomino. The risks and benefits of the procedure were explained to the patient and informed consent was obtained. The right pleural effusion was localized using ultrasound guidance. The skin was prepped and draped in a sterile fashion. 1% lidocaine was used as a local anesthetic. Using ultrasound guidance an 8-Frisian multi side-hole catheter was inserted using trocar technique. 100 ml of yellow colored fluid was withdrawn and sent to the lab for analysis. The patient tolerated the procedure well and there were no immediate complications. Electronically Signed by MARY Blancas 10/17/2019 05:45 P Electronically Signed by Ajith Palomino MD 10/17/2019 06:05 P
[2019-10-17 22:00] VITALS: BP 143/77
[2019-10-18 00:06] LABS: BODY FLUID CULTURE Not indicated. (.); LEGIONELLA ANTIGEN URINE Negative (Negative); ORGANISM ID Not indicated. (.); SPECIMEN SOURCE Urine (.); URINE STREP PNEUMONIAE ANTIGEN Negative (Negative)
--- NOTE | 2019-10-18 12:13 | DSES ---
DATE OF ADMISSION: 10/13/2019 DATE OF DISCHARGE: 10/17/2019 DISCHARGE DIAGNOSES: 1. Chronic obstructive pulmonary disease (COPD) exacerbation. 2. Postobstructive community-acquired pneumonia. 3. Acute hypoxic respiratory failure. 4. Right lung mass with pleural effusion. 5. Acute diastolic congestive heart failure, newly diagnosed. 6. Hypokalemia. PROCEDURES PERFORMED DURING THIS HOSPITALIZATION: Were a diagnostic right lung thoracentesis with removal of 100 mL of clear yellow fluid. CONSULTANTS ON THE CASE: Were interventional radiology for thoracentesis. DISPOSITION: The patient is discharged home. LABORATORIES: That need to be followed up are pleural fluid analysis. At the time of discharge, these are still pending. The patient is to followup with Dr. Mejia, who she will be seeing tomorrow for results of this, as well as for pleural fluid cytology. DISCHARGE INSTRUCTIONS: The patient is instructed to followup with Dr. Mejia tomorrow. She is to followup with her primary care provider in approximately 1 weeks' time. She is to keep logs of her blood pressure while at home to distinguish whether she truly has hypertension or just white coat syndrome. The patient is to take Lasix 10 mg daily, along with potassium chloride. She is to complete an additional 3 days of oral cefuroxime 500 mg twice a day. I have instructed her that she can discontinue her prednisone, as she has improved from a respiratory standpoint. CONDITION AT DISCHARGE: Improved from admission. RELEVANT LABORATORIES: Pleural fluid analysis are pending at the time of discharge. Sodium 143, potassium 3.6, chloride 105, bicarbonate is 31, BUN is 19, creatinine 0.6, magnesium is 1.9, serial troponin markers were negative. Urine legionella is pending. Streptococcus pneumoniae antigen is pending. Urine Streptococcus pneumoniae antigen is pending. Methicillin-resistant Staphylococcus aureus (MRSA) polymerase chain reaction (PCR) was negative. White blood cell count is 10.6, hemoglobin is 12.1, hematocrit 37.9, platelet count 344,000. MICROBIOLOGY: Blood cultures times two showed no growth. Gram stain from pleural fluid analysis, as well as acid fast stain and fungal smears also pending at the time of discharge and will need to be followed up as an outpatient. RELEVANT IMAGING: Completed during this hospitalization were: 1. Echocardiogram with Doppler which showed this patient had a preserved left ventricular ejection fraction with stage 1 diastolic dysfunction. No evidence of pericardial effusion. No significant valvular heart disease. 2. CT scan of the chest. Please reference report for details. 3. Post thoracentesis chest x-ray which showed no evidence of pneumothorax but did show improvement of right lower lobe infiltrate compared with chest x-ray from outpatient setting. DISCHARGE MEDICATIONS: Are the following: - cefuroxime 500 mg twice a day for the next 3 days - furosemide 10 mg by mouth daily - potassium chloride 10 mEq by mouth daily - albuterol inhaler two puffs every 4 hours as needed for shortness of breath - atorvastatin 10 mg at bedtime - cyclosporin one drop both eyes (OU) twice a day - Trelegy Ellipta one puff daily - ibuprofen 600 mg three times a day as needed for pain - latanoprost one drop OU nightly - omeprazole 20 mg daily - Zofran 4 mg every 8 hours as needed for nausea or vomiting - prednisone 40 mg by mouth daily with taper (I have told the patient to discontinue.) In addition, I have told the patient to discontinue azithromycin. HOSPITAL COURSE: Mrs. Mari is a 69-year-old woman who had presented to the hospital with worsening shortness of breath. She is a patient of Dr. Mejia and is in the process of being evaluated for a right lung mass which they have been following as an outpatient. The patient had been placed on steroids but despite this developed worsening shortness of breath. She was admitted to the hospitalist service. A chest x-ray showed possible postobstructive pneumonia. She was placed on intravenous (IV) Rocephin and Zithromax. She was started on steroids. Clinically, she had some improvement. She was noted also to have a small right pleural effusion. We had attempted to do a thoracentesis this past Thursday. However, the interventional radiologist could not accommodate the patient due to their already-busy schedule. Therefore, the patient was diuresed with IV diuretics after her echocardiogram indicated that she had some stage 1 diastolic dysfunction with preserved left ventricular ejection fraction. She actually improved from a respiratory standpoint with IV diuresis. She was transitioned to oral Lasix, which she has been tolerating quite well. This afternoon, she went for her thoracentesis with removal of 100 mL of clear yellow urine. The pleural fluid analysis is pending at the time of this discharge. Therefore, I have asked her to seek the results with Dr. Mejia at her followup appointment tomorrow. The patient has said she has been weaned off of oxygen, and I asked her to discontinue her prednisone as I do not feel that she is needing them at this time. She was given a prescription for the diuretic, as well as the new antibiotic. All questions were answered for her prior to discharge, and I also reminded her that she has been running high blood pressures here, but I suspect this was likely anxiety driven and that she can follow with her primary care provider and monitor her blood pressures as an outpatient in order for them to come to a decision about whether she will want treatment with medications. A total of 30 minutes was spent in completing all discharge paperwork.
== END 2019-10-17 19:22 | disposition home or self-care (01) | DRG 193 ==
LOC: M ED 17:21 → M ED INP 22:43 → ENRESERV 23:39 → M MSPAV 10-14 00:47
PROVIDERS: ADMIT Internal Medicine; ATTEND Internal Medicine
PROC: 0W993ZX Drainage of Right Pleural Cavity, Percutaneous Approach, Diagnostic (ICD-10-PCS; principal; 2019-10-17 16:30)
DX: J18.9 Pneumonia, unspecified organism (principal); J96.21 Acute and chronic respiratory failure with hypoxia; I50.31 Acute diastolic (congestive) heart failure; J44.0 Chronic obstructive pulmonary disease with (acute) lower respiratory infection; J90 Pleural effusion, not elsewhere classified; C85.91 Non-Hodgkin lymphoma, unspecified, lymph nodes of head, face, and neck; J44.1 Chronic obstructive pulmonary disease with (acute) exacerbation; F41.9 Anxiety disorder, unspecified; R91.8 Other nonspecific abnormal finding of lung field; E87.6 Hypokalemia; R03.0 Elevated blood-pressure reading, without diagnosis of hypertension; E78.5 Hyperlipidemia, unspecified; Z87.891 Personal history of nicotine dependence; Z99.81 Dependence on supplemental oxygen; Z79.899 Other long term (current) drug therapy; Z79.52 Long term (current) use of systemic steroids

== ENCOUNTER → 2019-10-18 | Outpatient (CLI) | payer MEDICARE, BC, OTHER ==
[~2019-10-18] MED LIST changes: +CEFU50TA PO; +FURO20TA2 PO; +KLOR10TA76 PO
[2019-10-18 13:41] LABS: INR 1.2; PROTHROMBIN TIME 14.9 SECONDS (11.8-14.0)
[2019-10-18 13:42] LABS: PARTIAL THROMBOPLASTIN TIME 31.5 SECONDS (25.0-38.4)
== END ==
LOC: M PLALAB 12:07
PROVIDERS: ATTEND Internal Medicine Pulmonary Disease
DX: Z01.812 Encounter for preprocedural laboratory examination (principal); R91.1 Solitary pulmonary nodule

== ENCOUNTER → 2019-10-20 | Outpatient (CLI) | payer MEDICARE, BC, OTHER ==
[~2019-10-20] MED LIST changes: +LIDOCAINE 1% MDV 20ML VIAL As Ordered ONE
[2019-10-20 15:30] VITALS: BP 160/84
--- NOTE | 2019-10-20 15:50 | REP ---
SINGLE VIEW CHEST: Single view of the chest is performed. Patient underwent right sided CT guided lung biopsy today. There is no pneumothorax. Right lung mass is again seen. Heart and mediastinum are unchanged. There appears to be a small amount of right pleural fluid/thickening. IMPRESSION: No evidence of pneumothorax status post right lung biopsy. Electronically Signed by Ajith Palomino MD 10/20/2019 05:43 P
--- NOTE | 2019-10-20 17:43 | REP ---
CT-GUIDED RIGHT LOWER LOBE LUNG BIOPSY The procedure was performed under the direct supervision of Dr. Palomino. The patient has a history of a 3.2 cm spiculated mass in the right lower lobe seen on a previous CT scan dated 10/13/2019. The risks and benefits of the procedure were explained to the patient and informed consent was obtained. The right lower lobe lung mass was localized using CT guidance. The skin was prepped and draped in a sterile fashion. 1% lidocaine was used as a local anesthetic. Using CT guidance a 19/20 gauge coaxial needle biopsy system was inserted and advanced into the mass. Five core biopsy samples were obtained and sent to lab. The patient tolerated the procedure well and there were no immediate complications. After the appropriate amount of monitored convalescence the patient was discharged from the department. Electronically Signed by MARY Blancas 10/20/2019 03:54 P Electronically Signed by Ajith Palomino MD 10/20/2019 05:35 P
== END ==
LOC: M IRPRO 11:15
PROVIDERS: ATTEND Internal Medicine Pulmonary Disease
DX: R91.1 Solitary pulmonary nodule (principal)

== ENCOUNTER → 2019-11-17 | Outpatient (CLI) | payer MEDICARE, BC, OTHER ==
[~2019-11-17] MED LIST changes: +ACETAMINOPHEN 325 MG TAB As Ordered ONE; +ACETAMINOPHEN 325 MG TAB PO PRN; -LIDOCAINE 1% MDV 20ML VIAL As Ordered ONE; +SUCR1SS PO
[2019-11-17 10:21] LABS: BASO # 0.1 10^3/uL (0.0-0.2); BASO % 0.9 % (0.0-1.0); EOS # 0.2 10^3/uL (0.0-0.5); EOS % 1.8 % (0.0-3.0); HEMATOCRIT 38.4 % (36.0-47.0); HEMOGLOBIN 12.7 g/dl (12.0-15.5); LYMPH # 0.7 10^3/uL (1.5-5.0); LYMPH % 6.4 % (24.0-44.0); MEAN CORPUSCULAR HEMOGLOBIN 29.1 pg (27.0-33.0); MEAN CORPUSCULAR HGB CONC 33.1 g/dl (32.0-36.5); MEAN CORPUSCULAR VOLUME 87.9 fl (80.0-96.0); MONO # 0.8 10^3/uL (0.0-0.8); MONO % 7.8 % (0.0-5.0); NEUTROPHILS # 8.4 10^3/uL (1.5-8.5); NEUTROPHILS % 82.7 % (36.0-66.0); PLATELET COUNT, AUTOMATED 339 10^3/uL (150-450); RED BLOOD COUNT 4.37 10^6/uL (4.00-5.40); WHITE BLOOD COUNT 10.1 10^3/uL (4.0-10.0)
[2019-11-17 10:32] LABS: INR 1.17; PROTHROMBIN TIME 14.6 SECONDS (11.8-14.0)
[2019-11-17 10:33] LABS: PARTIAL THROMBOPLASTIN TIME 34.8 SECONDS (25.0-38.4)
[2019-11-17 10:52] LABS: ALBUMIN 2.8 GM/DL (3.2-5.2); ALT/SGPT 27 U/L (12-78); BILIRUBIN,TOTAL 0.8 MG/DL (0.2-1.0); BLOOD UREA NITROGEN 13 MG/DL (7-18); CALCIUM LEVEL 9.1 MG/DL (8.8-10.2); CARBON DIOXIDE LEVEL 28 MEQ/L (21-32); CHLORIDE LEVEL 100 MEQ/L (98-107); CREATININE FOR GFR 0.59 MG/DL (0.55-1.30); GLOMERULAR FILTRATION RATE > 60.0 (>45); GLUCOSE, FASTING 94 MG/DL (70-100); POTASSIUM SERUM 3.8 MEQ/L (3.5-5.1); SODIUM LEVEL 135 MEQ/L (136-145); TOTAL PROTEIN 7.1 GM/DL (6.4-8.2)
[2019-11-17 11:24] LABS: LDH LACTATE DEHYDROGENASE 425 U/L (84-246)
[2019-11-17 12:18] LABS: APPEARANCE, BODY FLUID CLOUDY (CLEAR); PLEURAL FL COLOR YELLOW (COLORLESS); SOURCE, BODY FLUID PLEURAL
[2019-11-17 12:32] LABS: AMYLASE, BODY FLUID 58 U/L (NOT ESTABLISHED); LDH, BODY FLUID 581 U/L (NOT ESTABLISHED); SOURCE, BODY FLUID AMYLASE THORACENTESIS; SOURCE, BODY FLUID GLUCOSE THORACENTESIS; SOURCE, BODY FLUID LDH THORACENTESIS; SOURCE, BODY FLUID TOT PROTEIN THORACENTESIS; TOTAL PROTEIN, BODY FLUID 3.9 G/DL (NOT ESTABLISHED)
--- NOTE | 2019-11-17 12:45 | REP ---
CHEST, TWO VIEWS: Two views of the chest are performed status post right thoracentesis. No pneumothorax is seen. There is residual pleural fluid and consolidative opacity inferiorly on the right. No acute changes are seen on the left. The heart and mediastinum are unchanged since the prior study of 11/09/2019. IMPRESSION: No pneumothorax status post right thoracentesis. Residual pleural and parenchymal opacity right lung base. Electronically Signed by Ajith Palomino MD 11/17/2019 02:34 P
[2019-11-17 13:15] VITALS: BP 141/86
[2019-11-17 13:59] LABS: PH BODY FLUID 7.696 UNITS (NOT ESTABLISHED); SOURCE, BODY FLUID pH THORACENTES
--- NOTE | 2019-11-17 15:54 | REP ---
ULTRASOUND-GUIDED RIGHT THORACENTESIS The procedure was performed under the direct supervision of Dr. Palomino. The risks and benefits of the procedure were explained to the patient and informed consent was obtained. The right pleural effusion was localized using ultrasound guidance. The skin was prepped and draped in a sterile fashion. 1% lidocaine was used as a local anesthetic. An 8-Yoruba multi side-hole catheter was inserted using trocar technique. 1050 ml of yellow fluid was withdrawn with a sample sent to the lab for analysis. The patient tolerated the procedure well and there were no immediate complications. After the appropriate amount of monitored convalescence the patient was discharged from the department. Electronically Signed by MARY Blancas 11/17/2019 03:28 P Electronically Signed by Ajith Palomino MD 11/17/2019 03:46 P
== END ==
LOC: M IRPRO 09:39
PROVIDERS: ATTEND Internal Medicine Pulmonary Disease
DX: C34.31 Malignant neoplasm of lower lobe, right bronchus or lung (principal); J91.0 Malignant pleural effusion; J95.811 Postprocedural pneumothorax; Z79.52 Long term (current) use of systemic steroids; I50.31 Acute diastolic (congestive) heart failure